=== PATIENT | female | born 1940 ===

== ENCOUNTER 2025-01-08 08:38 | Outpatient (CLI) | payer OTHER ==
[~2025-01-08 08:38] MED LIST: DESPEC DM SYRU473 ML PO; LANTUS100 U/ML SQ; LEVAQUIN750 MG PO; MEDROL4 MG PO; METFORMIN HYDRO25 G1 MC; XOPENEX1.25 MG/0. IH; ZIAC 10/6.25 MG1 TAB PO
== END 2025-01-08 08:45 | disposition home or self-care (01) ==
LOC: SONOGRAMA 08:38
DX: E11.22 Type 2 diabetes mellitus with diabetic chronic kidney disease (principal); E11.42 Type 2 diabetes mellitus with diabetic polyneuropathy; E03.8 Other specified hypothyroidism; E04.2 Nontoxic multinodular goiter; I10 Essential (primary) hypertension; E78.00 Pure hypercholesterolemia, unspecified; E66.09 Other obesity due to excess calories